=== PATIENT | male | born 1955 | race Caucasian/White ===

== ENCOUNTER 2018-03-07 11:27 | Emergency (ER) | payer BC ==
--- NOTE | 2018-03-07 12:10 | RAD ---
HISTORY: short of breath COMPARISONS: None VIEWS: 4: Frontal dual-energy and lateral views of the chest. FINDINGS: CARDIOMEDIASTINAL SILHOUETTE: The cardiomediastinal silhouette is normal. LANIE: The lanie are normal. PLEURA: The costophrenic angles are sharp. No pleural abnormalities are noted. LUNG PARENCHYMA: The lungs are clear. ABDOMEN: The upper abdomen is clear. There is no subphrenic gas. BONES AND SOFT TISSUES: Degenerative changes are noted along the spine. OTHER: None. IMPRESSION: NO ACTIVE CARDIOPULMONARY DISEASE.
--- NOTE | 2018-03-07 12:55 | ED ---
Shortness of Breath - HPI Summary HPI Summary: 62 y/o male presents to the ED c/o sudden onset, severe SOB this morning at 07: 00 sitting in a chair. Denies CP, cough, fever. SOB resolved spontaneously, lasting 3 hours. Denies pain in calf. Denies PMHx anxiety. Pt has never had these symptoms before. Pt is currently asymptomatic. This is scribe Ed Vika documenting for attending Rex Rivera MD - History of Current Complaint Chief Complaint: EDShortnessOfBreath Time Seen by Provider: 03/07/18 12:42 Hx Obtained From: Patient Onset/Duration: Sudden Onset, Lasting Hours, Resolved Dyspnea At: Rest Aggrevating Factors: Nothing Alleviating Factors: Nothing Associated Signs & Symptoms: Negative - Allergy/Home Medications Home Medications: Home Medications Aspirin EC TAB* [Ecotrin EC Low Dose 81 MG*] 81 mg PO DAILY 03/07/18 [History Confirmed 03/07/18] Insulin GLARGINE(*) [Lantus(*)] 50 units SUBCUT DAILY 03/07/18 [History Confirmed 03/07/18] Insulin LISPRO* [HumaLOG*] 0 units SUBCUT DIRECTED 03/07/18 [History Confirmed 03/07/18] Lisinopril TAB* [Prinivil TAB 10 MG*] 40 mg PO DAILY 03/07/18 [History Confirmed 03/07/18] glipiZIDE TAB* [Glucotrol TAB*] 10 mg PO BID 03/07/18 [History Confirmed ] metFORMIN* [Glucophage 1000 MG TAB *] 1,000 mg PO BID 03/07/18 [History Confirmed 03/07/18] PMH/Surg Hx/FS Hx/Imm Hx Previously Healthy: No Cardiovascular History: Denies: Hx Congestive Heart Failure Opthamlomology History: Denies: Hx Legally Blind Infectious Disease History: No Infectious Disease History: Denies: Traveled Outside the [place] in Last 30 Days - Family History Known Family History: Positive: Unknown - Social History Lives: With Family Review of Systems Constitutional: Negative Eyes: Negative ENT: Negative Cardiovascular: Negative Positive: Shortness Of Breath Gastrointestinal: Negative Genitourinary: Negative Musculoskeletal: Negative Skin: Negative Neurological: Negative Psychological: Normal All Other Systems Reviewed And Are Negative: Yes Physical Exam - Summary Physical Exam Summary: VITAL SIGNS: Reviewed. GENERAL: Patient is a well-developed and nourished male who is lying comfortable in the stretcher. Patient is not in any acute respiratory distress. HEAD AND FACE: No signs of trauma. No ecchymosis, hematomas or skull depressions. No sinus tenderness. EYES: PERRLA, EOMI x 2, No injected conjunctiva, no nystagmus. EARS: Hearing grossly intact. Ear canals and tympanic membranes are within normal limits. MOUTH: Oropharynx within normal limits. NECK: Supple, trachea is midline, no adenopathy, no JVD, no carotid bruit, no c- spine tenderness, neck with full ROM. CHEST: Symmetric, no tenderness at palpation LUNGS: Clear to auscultation bilaterally. No wheezing or crackles. CVS: Regular rate and rhythm, S1 and S2 present, no murmurs or gallops appreciated. ABDOMEN: Soft, non-tender. No signs of distention. No rebound no guarding, and no masses palpated. Bowel sounds are normal. EXTREMITIES: FROM in all major joints, no edema, no cyanosis or clubbing. NEURO: Alert and oriented x 3. No acute neurological deficits. Speech is normal and follows commands. SKIN: Dry and warm Triage Information Reviewed: Yes Vital Signs On Initial Exam: Initial Vitals Temp Pulse Resp BP Pulse Ox 96.9 F 90 16 129/80 97 03/07/18 11:36 03/07/18 11:36 03/07/18 11:36 03/07/18 11:36 03/07/18 11:36 Vital Signs Reviewed: Yes Diagnostics - Vital Signs Vital Signs Temp Pulse Resp BP Pulse Ox 03/07/18 11:36 96.9 F 90 16 129/80 97 - Laboratory Result Diagrams: 03/07/18 13:06 03/07/18 13:05 Lab Statement: Any lab studies that have been ordered have been reviewed, and results considered in the medical decision making process. - Radiology CXR Xray Interpretation: No Acute Changes - NO active cardiopulmonary disease Radiology Interpretation Completed By: Radiologist - Additional Comments Diagnostic Additional Comments: EKG - 11:48 - SR @ [address] elevations. T wave inversions in II, III, V4- V6. Course/Dx - Course Assessment/Plan: This patient is a 62-year-old male who presents to the emergency department with chief complaint of one episode of shortness of breath. The patient denies any chest pain or dizziness or feeling like he is going to pass out. Patient reports that the symptoms lasted for 3 hours and now he is back to his baseline. He has no other complaints. Test results without any significant abnormality except for white blood cell count of 13.5, mucosa 55, lactic acid of 2.1, alkaline phosphatase or 111. To separate troponins 4 hours apart as 0.03. D-dimer is less than 200 therefore I have no suspicion for PE. Chest x-ray shows no acute pathology. EKG shows no ST elevations. Therefore I believe that the patient is not having any acute coronary syndrome or pulmonary embolism. The patient will be discharged home with follow-up with primary care physician. I discussed the findings and test results with the patient and the need to return to the emergency room if she develops any other chest patients breath palpitations. All questions were answered and there is no further concerns. - Diagnoses Provider Diagnoses: Dyspnea Discharge - Sign-Out/Discharge Documenting (check all that apply): Patient Departure - Discharge Plan Condition: Stable Disposition: HOME Patient Education Materials: Dyspnea (ED) Referrals: Noah Yi MD [Primary Care Provider] - 4 Days (PLEASE F/U IN 3-5 DAYS) Additional Instructions: PLEASE RETURN FOR CHANGING/WORSENING SYMPTOMS - Billing Disposition and Condition Condition: STABLE Disposition: Home
[2018-03-07 13:31] LABS: Hematocrit 46 % (42-52); Hemoglobin 15.6 g/dl (14.0-18.0); Mean Corpuscular HGB Conc 34 g/dl (31-36); Mean Corpuscular Hemoglobin 28 pg (27-31); Mean Corpuscular Volume 83 fL (80-94); Mean Platelet Volume 7.5 um3 (7.4-10.4); Platelet Count 318 10^3/ul (150-450); Red Blood Count 5.48 10^6/ul (4.00-5.40); Red Cell Distribution Width 14 % (10.5-15); White Blood Count 13.5 10^3/ul (3.5-10.8)
[2018-03-07 13:51] LABS: EGFR Non-African American 93.9 (>60)
[2018-03-07 14:54] LABS: ABS Basophils 0.1 10^3/ul (0-0.2); ABS Eosinophils 0.1 10^3/ul (0-0.6); ABS Monocytes 0.9 10^3/ul (0-0.8); ABS Neutrophils 6.4 10^3/ul (1.5-7.7); ABS Nucleated RBC 0 10^3/ul; Eosinophil % 0.8 % (0-6); Lymphocyte % 44.2 % (25-47); Nucleated Red Blood Cells % 0
[2018-03-07 16:38] VITALS: BP 140/81
== END 2018-03-07 16:38 | disposition home or self-care (01) ==
LOC: ED 11:27
DX: R06.00 Dyspnea, unspecified (principal); Z79.82 Long term (current) use of aspirin
CPT/HCPCS: 36415; 71046; 80053; 83605; 84484; 85025; 85060; 85379; 87040; 93005; 99283

== ENCOUNTER → 2018-10-17 09:46 | Day surgery (SDC) | payer BC ==
[~2018-10-17 09:46] MED LIST: FLUTICASONE PROPIONATE 50 MCG IH SCH; Furosemide TAB* 20 MG PO SCH; Heparin 2 UNITS/ML IVPREMIX* 2,000 UNIT/1,000 ML BAG IV ONE; Heparin(*) 1000 UNIT/ML 10 ML VIAL CATH LAB IV ONE; INSULIN GLARGINE HUM REC ANLOG 20 UNIT SUBCUT SCH; INSULIN LISPRO PROTAMIN SUBCUT SCH; Iohexol 350 (CONTRAST) 200 ML MDV IV ONE; LISPRO SUBCUT SCH; Lidocaine 1% INJ* 10 MG/ML 30 ML SDV ONE; Lisinopril TAB* 10 MG PO SCH; Metoprolol Succinate XL TAB* 25 MG PO SCH; Midazolam* 1 MG/ML 5 ML VIAL (5 MG) ONE; NS 0.9% 1000 ML** 1,000 ML IV SCH; Potassium Chlor TAB* 10 MEQ TAB.ER PO SCH; VERAPAMIL 2.5 MG/ML 2 ML VIAL ** 5 mg/2 ml ONE; fentaNYL* 50 MCG/ML 2 ML VIAL (100 MCG VIAL) ONE; glipiZIDE TAB* 5 MG PO SCH; nitroGLYCERIN DRIP* 25,000 MCG/250 ML BTL ONE
[2018-10-17 11:06] LABS: ABS Basophils 0.1 10^3/ul (0-0.2); ABS Eosinophils 0.1 10^3/ul (0-0.6); ABS Lymphocytes 2.4 10^3/ul (1.0-4.8); ABS Monocytes 0.5 10^3/ul (0-0.8); ABS Neutrophils 4.5 10^3/ul (1.5-7.7); ABS Nucleated RBC 0 10^3/ul; Eosinophil % 1.5 %; Hematocrit 44 % (42-52); Hemoglobin 14.6 g/dl (14.0-18.0); Lymphocyte % 31.5 %; Mean Corpuscular HGB Conc 34 g/dl (31-36); Mean Corpuscular Hemoglobin 28 pg (27-31); Mean Corpuscular Volume 83 fL (80-94); Mean Platelet Volume 7.6 fL (7.4-10.4); Nucleated Red Blood Cells % 0.1; Platelet Count 271 10^3/ul (150-450); Red Blood Count 5.26 10^6/ul (4.00-5.40); Red Cell Distribution Width 14 % (10.5-15); White Blood Count 7.5 10^3/ul (3.5-10.8)
[2018-10-17 14:14] VITALS: BP 150/92
[2018-10-17 14:19] LABS: HDL Cholesterol 49.1 mg/dL
--- NOTE | 2018-10-18 11:11 | CATH ---
CC: Dr. Noah Yi; Dr. Ruggiero; Nadeen Garcia NP CATH REPORT: DATE OF PROCEDURE: 10/17/18 PRIMARY CARE PHYSICIAN: Dr. Noah Yi. CARDIOLOGISTS: Dr. Ruggiero and Nadeen Garcia NP PROCEDURES: Right radial artery access, bilateral selective coronary cineangiography, left heart catheterization, left ventriculography. HISTORY: A 63-year-old male with obstructive sleep apnea, diabetes, hypertension, obesity, dyslipidemia, referred for coronary angiography for evaluation of exertional dyspnea and atypical chest pain. Echocardiographic EF 50% to 55% with normal wall motion, no pulmonary hypertension; however, myocardial perfusion imaging showed global hypokinesis with LVEF of 36% with a large lateral fixed defect. He was referred for coronary angiography because of discrepancy in noninvasive testing and progressively limiting exertional dyspnea. PROCEDURE ACCESS: Right radial artery sheath 6F slender. MEDICATIONS: 1. Subcu lidocaine. 2. IV Versed. 3. IV fentanyl. 4. Heparin 3000 units. 5. Verapamil 3 mg. 6. Nitroglycerin 300 mcg IA. DIAGNOSTIC CATHETERS: 5F TIG4, 5F pigtail. HEMODYNAMICS: Initial BP 183/100. Initial AO 114/68. Postcoronary angiography LV 150/18-26, no aortic valve gradient on pullback. ANGIOGRAPHY: The left coronary system has heavy calcification in the LAD and circumflex. Left main: The left main is relatively short, has no stenosis. LAD: The LAD is moderate, extends the apex, has fairly diffuse nonobstructive plaquing involving a large first diagonal branch which has luminal irregularity without flow limiting stenosis. The LAD after the diagonal has a 30% stenosis, then mid LAD has a tubular 30% stenosis, the LAD extends past the apex. Circumflex: The circumflex is moderate, not dominant with a small first marginal, small second marginal, the third marginal is occluded shortly after the origin, it bifurcates beyond the occlusion point, fills retrograde by left- to-left collaterals. The AV groove circumflex ends with a small posterolateral. Incidentally, the circumflex provides the SA madhavi artery. The circumflex beyond the occlusion point is small, but may be underfilled, proximal to the occlusion. The third marginal has lengthy diffuse disease with a small diameter. It is not ideal for PCI. RCA: The RCA is dominant, moderate, has a 60% to 70% stenosis before the crux, the PDA is parallel, has tandem 50% to 60% stenosis, the second PDA likewise has diffuse plaquing with up to 50% to 60% stenosis, distal RCA supplies a bifurcated posterolateral without stenosis. RCA was not intervened upon as his stress imaging study showed no inferior wall ischemia by report or by my review. LV gram in the BENGALI 45 degrees 25 cranial projection shows fairly localized lateral wall akinesis with tethering, calculated LVEF approximately 50%. CONCLUSION: 1. Two-vessel disease with [employer] circumflex OM3, not ideal for PCI, with accompanying regional wall motion abnormality and a fixed defect on non- injection myocardial perfusion imaging. 2. RCA stenosis involving distal RCA as well as PDA, not ischemic on MPI. 3. Diffuse nonobstructive disease in the LAD system. 4. Normal LVEF with regional wall motion abnormality. 5. Elevated LVEDP consistent with diastolic dysfunction, which may account for some of the dyspnea. LVEDP is high in spite of 40 mg of Lasix daily, this will be increased. 6. Successful right radial artery access. [id number]/[facility] #: [id number] MARTIN
== END | disposition home or self-care (01) ==
LOC: CHICATH 09:46
PROVIDERS: ATTEND Internal Medicine Cardiovascular Disease
DX: I25.10 Atherosclerotic heart disease of native coronary artery without angina pectoris (principal); R06.09 Other forms of dyspnea; R07.89 Other chest pain; R94.39 Abnormal result of other cardiovascular function study; Z87.891 Personal history of nicotine dependence; G47.33 Obstructive sleep apnea (adult) (pediatric); E11.9 Type 2 diabetes mellitus without complications; E78.5 Hyperlipidemia, unspecified; I10 Essential (primary) hypertension; E66.9 Obesity, unspecified
CPT/HCPCS: 36415; 80061; 85025; 93458; 99156; 99157; C1769; J1644; J2250; J3010